=== PATIENT | male | born 1955 | race Caucasian/White ===

== ENCOUNTER 2020-10-13 23:19 | Inpatient (IN) | payer BC ==
[~2020-10-13] VITALS: Ht 175.3 cm; Wt 104.3 kg
[2020-10-13 23:43] LABS: BASOPHILS # (AUTO) 0.1 (0.0-0.1); BASOPHILS % 0.6 % (0.0-1.0); EOSINOPHILS # (AUTO) 0.2 (0.0-0.4); EOSINOPHILS % 1.8 % (0.0-6.0); HEMATOCRIT 42.8 % (38.2-49.6); HEMOGLOBIN 14.1 g/dL (14.0-18.0); LYMPHOCYTES # (AUTO) 2.7 (1.0-3.2); LYMPHOCYTES % 28.1 % (18.0-39.1); MEAN CORPUSCULAR HEMOGLOBIN 30.9 pg (28-32); MEAN CORPUSCULAR HGB CONC 32.9 g/dL (31-35); MEAN CORPUSCULAR VOLUME 93.7 fL (81-99); MONOCYTES % 10.3 % (4.4-11.3); NEUTROPHILS # (AUTO) 5.6 (2.1-6.9); NEUTROPHILS % 58.9 % (38.7-80.0); PLATELET COUNT 166 x10e3/uL (140-360); RED BLOOD COUNT 4.57 x10e6/uL (4.3-5.7); RED CELL DISTRIBUTION WIDTH 12.7 % (11.7-14.4)
[2020-10-13] MEDS ORDERED: AMIODARONE HCL 150 MG/100 ML BAG IV ONE (23:45)
[2020-10-13] MEDS ORDERED: AMIODARONE HCL 900 MG in DEXTROSE 5% 500ML 500 ML IV ONE (23:45)
[2020-10-13] MEDS ORDERED: AMIODARONE HCL 150MG 100 ML ONE (23:50)
[2020-10-13 23:54] LABS: INR 0.92; PARTIAL THROMBOPLASTIN TIME 36.3 seconds (23.8-35.5)
[2020-10-14] VITALS (16 sets, daily range): BP systolic 95–120; BP diastolic 69–85
[2020-10-14] MEDS ORDERED: AMIODARONE 900MG 500 ML IV ONE
[2020-10-14 00:03] LABS: ALANINE AMINOTRANSFERASE 25 IU/L (0-55); ALBUMIN 3.9 g/dL (3.5-5.0); ALBUMIN/GLOBULIN RATIO 1.2 (0.8-2.0); ALKALINE PHOSPHATASE 67 IU/L (40-150); ANION GAP 14.1 mmol/L (8-16); BLOOD UREA NITROGEN 30 mg/dL (7-26); BUN/CREATININE RATIO 34 (6-25); CALCIUM 8.5 mg/dL (8.4-10.2); CARBON DIOXIDE 20 mmol/L (22-29); CHLORIDE 107 mmol/L (98-107); CREATINE KINASE 80 IU/L (30-200); CREATININE, SERUM 0.88 mg/dL (0.72-1.25); EST GLOMERULAR FILTRATION RATE > 60 ML/MIN (60-); GLUCOSE 123 mg/dL (74-118); POTASSIUM 4.1 mmol/L (3.5-5.1); SODIUM 137 mmol/L (136-145)
[2020-10-14] MEDS ORDERED: ONDANSETRON HCL INJ 2MG/ML 2ML 2 MG/ML VIAL IV PRN (02:00)
[2020-10-14] MEDS ORDERED: DEXTROSE 50% SYRINGE 50 ML IV PRN (02:00)
[2020-10-14 06:00] LABS: CREATINE KINASE MB 1.4 ng/mL (0-5.0)
[2020-10-14] MEDS: INSULIN REGULAR, HUMAN 100 UNIT/1 ML 3ML VIAL SQ SCH ×3 (07:30→11:34)
[2020-10-14] MEDS: SODIUM CHLORIDE FLUSH 10 ML SYR INJ PRN ×2 (10:37→17:30)
[2020-10-14] MEDS ORDERED: ATENOLOL50 MG PO (12:19)
[2020-10-14] MEDS ORDERED: LIPITOR10 MG PO (12:19)
[2020-10-14] MEDS ORDERED: VITAMIN B-1100 M1 PO (12:19)
[2020-10-14] MEDS ORDERED: METFORMIN HCL850 MG PO (12:19)
[2020-10-14] MEDS ORDERED: VITAMIN D250 MCG PO (12:19)
[2020-10-14] MEDS ORDERED: CALCIUM CARBON500 MG PO (12:19)
[2020-10-14] MEDS ORDERED: ZINC-22050 MG PO (12:19)
[2020-10-14] MEDS ORDERED: VITAMIN C500 MG PO (12:19)
[2020-10-14] MEDS ORDERED: VITAMIN E400 UNI1 PO (12:19)
[2020-10-14] MEDS ORDERED: B12 ACTIVE1000 MCG PO (12:19)
[2020-10-14] MEDS ORDERED: SERINE PO (12:19)
[2020-10-14] MEDS ORDERED: LISINOPRIL10 MG PO (12:19)
[2020-10-14] MEDS ORDERED: GLIPIZIDE5 MG PO (12:19)
[2020-10-14] MEDS ORDERED: FOLIC ACID0.4 MG PO (12:19)
[2020-10-14] MEDS ORDERED: NOVOLOG100 UNIT/1 SC (12:31)
[2020-10-14] MEDS ORDERED: LANTUS 3ML100 UNITS/ SQ (12:31)
[2020-10-14] MEDS ORDERED: LANTUS 3ML100 UNITS/ SC (12:31)
[2020-10-14 14:18] LABS: FREE T4 (FREE THYROXINE) 0.99 ng/dL (0.8-1.8); THYROID STIMULATING HORMONE 1.403 uIU/mL (0.350-4.940)
[2020-10-14 14:39] LABS: CREATINE KINASE MB 1.2 ng/mL (0-5.0)
[2020-10-14] MEDS: ATENOLOL 50 MG TAB PO SCH ×2 (15:15→15:55)
[2020-10-14] MEDS: APIXABAN 5 MG TABLET PO SCH (16:30)
[2020-10-14] MEDS: INSULIN LISPRO 100 UNIT/1 ML 3ML VIAL SQ SCH ×3 (16:30→21:00)
[2020-10-14] MEDS: DRONEDARONE 400 MG TAB PO SCH (17:16)
[2020-10-14] MEDS ORDERED: INSULIN GLARGINE 100 UNITS/ML VIAL SQ SCH ×2 (21:00→21:30)
[2020-10-15] VITALS (7 sets, daily range): BP systolic 82–103; BP diastolic 52–86
[2020-10-15 04:53] LABS: BASOPHILS % 0.4 % (0.0-1.0); EOSINOPHILS # (AUTO) 0.2 (0.0-0.4); EOSINOPHILS % 1.4 % (0.0-6.0); HEMATOCRIT 41.2 % (38.2-49.6); HEMOGLOBIN 13.4 g/dL (14.0-18.0); LYMPHOCYTES # (AUTO) 2.2 (1.0-3.2); LYMPHOCYTES % 20.7 % (18.0-39.1); MEAN CORPUSCULAR HEMOGLOBIN 30.7 pg (28-32); MEAN CORPUSCULAR HGB CONC 32.5 g/dL (31-35); MEAN CORPUSCULAR VOLUME 94.5 fL (81-99); MONOCYTES # (AUTO) 1.2 (0.2-0.8); MONOCYTES % 11.3 % (4.4-11.3); NEUTROPHILS # (AUTO) 6.9 (2.1-6.9); NEUTROPHILS % 65.9 % (38.7-80.0); PLATELET COUNT 156 x10e3/uL (140-360); RED BLOOD COUNT 4.36 x10e6/uL (4.3-5.7); RED CELL DISTRIBUTION WIDTH 12.8 % (11.7-14.4)
[2020-10-15 05:18] LABS: ALANINE AMINOTRANSFERASE 31 IU/L (0-55); ALBUMIN 3.6 g/dL (3.5-5.0); ALBUMIN/GLOBULIN RATIO 1.2 (0.8-2.0); ALKALINE PHOSPHATASE 70 IU/L (40-150); ANION GAP 15.1 mmol/L (8-16); BLOOD UREA NITROGEN 21 mg/dL (7-26); BUN/CREATININE RATIO 22 (6-25); CARBON DIOXIDE 22 mmol/L (22-29); CHLORIDE 105 mmol/L (98-107); CHOL/HDL RATIO 4.2 (3.9-4.7); CHOLESTEROL 122 MD/DL (0-199); CREATININE, SERUM 0.95 mg/dL (0.72-1.25); EST GLOMERULAR FILTRATION RATE > 60 ML/MIN (60-); GLUCOSE 123 mg/dL (74-118); HDL CHOLESTEROL 29 MG/DL (40-60); LDL CHOLESTEROL 32 MG/DL (60-130); POTASSIUM 4.1 mmol/L (3.5-5.1); SODIUM 138 mmol/L (136-145); TRIGLYCERIDES 307 MG/DL (0-149)
[2020-10-15] MEDS: INSULIN LISPRO 100 UNIT/1 ML 3ML VIAL SQ SCH ×2 (07:30)
[2020-10-15] MEDS: DRONEDARONE 400 MG TAB PO SCH (08:05)
[2020-10-15] MEDS: APIXABAN 5 MG TABLET PO SCH (09:37)
[2020-10-15] MEDS ORDERED: ELIQUIS5 MG PO (11:09)
[2020-10-15] MEDS ORDERED: MULTAQ 400MG T400 MG PO (11:10)
== END 2020-10-15 11:40 | disposition home or self-care (01) | DRG 310 ==
LOC: ER 23:23 → ERHOLD 10-14 02:06 → IMCU 10-14 09:22
PROVIDERS: ADMIT Internal Medicine; ATTEND Internal Medicine
DX: I48.91 Unspecified atrial fibrillation (principal); E11.42 Type 2 diabetes mellitus with diabetic polyneuropathy; E66.9 Obesity, unspecified; Z68.34 Body mass index [BMI] 34.0-34.9, adult; I10 Essential (primary) hypertension; Z88.0 Allergy status to penicillin; Z88.8 Allergy status to other drugs, medicaments and biological substances; Z98.84 Bariatric surgery status; E78.5 Hyperlipidemia, unspecified; Z79.4 Long term (current) use of insulin; Z83.3 Family history of diabetes mellitus; Z82.3 Family history of stroke; K57.90 Diverticulosis of intestine, part unspecified, without perforation or abscess without bleeding; Z20.822 Contact with and (suspected) exposure to COVID-19
CPT/HCPCS: 36415; 71045; 80053; 80061; 82550; 82553; 82948; 83036; 84439; 84443; 84484; 85025; 85610; 85730; 93005; 93306; 99251; 99284; J2405; J7060; U0002